=== PATIENT | male | born 1980 | race Caucasian/White ===

== ENCOUNTER 2018-08-17 13:59 | Emergency (ER) | payer SELFPAY ==
[2018-08-17 14:48] LABS: ABS Basophils 0 10^3/ul (0-0.2); ABS Eosinophils 0.1 10^3/ul (0-0.6); ABS Lymphocytes 0.3 10^3/ul (1.0-4.8); ABS Monocytes 0.7 10^3/ul (0-0.8); ABS Neutrophils 4.8 10^3/ul (1.5-7.7); ABS Nucleated RBC 0 10^3/ul; Eosinophil % 0.9 %; Hematocrit 44 % (42-52); Hemoglobin 14.6 g/dl (14.0-18.0); Lymphocyte % 4.8 %; Mean Corpuscular HGB Conc 33 g/dl (31-36); Mean Corpuscular Hemoglobin 31 pg (27-31); Mean Corpuscular Volume 94 fL (80-94); Mean Platelet Volume 7.5 fL (7.4-10.4); Nucleated Red Blood Cells % 0; Platelet Count 275 10^3/ul (150-450); Red Blood Count 4.66 10^6/ul (4.00-5.40); Red Cell Distribution Width 16 % (10.5-15); White Blood Count 5.9 10^3/ul (3.5-10.8)
[2018-08-17] MEDS ORDERED: NS 0.9% 1000 ML* 1,000 ML IV ONE (14:51)
[2018-08-17 15:05] LABS: ALT 65 U/L (7-52); AST 38 U/L (13-39); Albumin 4.8 g/dL (3.2-5.2); Albumin/Globulin Ratio 1.6 (1-3); Alkaline Phosphatase 69 U/L (34-104); Anion Gap 7 mmol/L (2-11); BUN/Creatinine Ratio 13.2 (8-20); Blood Urea Nitrogen 12 mg/dL (6-24); CO2 Carbon Dioxide 26 mmol/L (22-32); CRP High Sensitivity 2.85 mg/L (<2.00); Chloride 103 mmol/L (101-111); EGFR Non-African American 93.7 (>60); Glucose 152 mg/dL (70-100); Potassium 3.9 mmol/L (3.5-5.0); Sodium 136 mmol/L (135-145); Total Protein 7.8 g/dL (6.4-8.9)
[2018-08-17 15:46] LABS: Alcohol < 10 mg/dL (<10)
[2018-08-17] MEDS ORDERED: LORazepam INJ* 2 MG/ML 1 ML VIAL IV PUSH ONE (15:57)
[2018-08-17] MEDS ORDERED: Thiamine IV 100 MG, Folic Acid IV* 1 MG, Multiple Vitamin IV ADULT* 10 ML in D5NS 0.9% ... IV ONE (15:58)
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
[2018-08-17] MEDS ORDERED: chlordiazePOXIDE CAP* 25 MG PO ONE (16:47)
[2018-08-17] MEDS ORDERED: chlordiazePOXIDE CAP* 25 MG PO PRN ×2 (16:48)
[2018-08-17] MEDS ORDERED: Atenolol TAB* 25 MG PO SCH (17:00)
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
[2018-08-17] MEDS ORDERED: D5W 1/2 NS 1000 ML BAG* 1,000 ML IV SCH (18:00)
[2018-08-17] MEDS ORDERED: Thiamine TAB* 100 MG TAB PO SCH (18:00)
--- NOTE | 2018-08-17 18:25 | PN ---
Hospitalist Progress Note Date of Service: 08/17/18 Patient stated his intention of leaving AMA. The risks of leaving including recurrent seizure and were explained and patient and he stated that he understood the risks but was going to leave regardless. Librium taper was sent to pharmacy and patient will leave AMA.
[2018-08-17 18:40] VITALS: BP 126/83
[2018-08-17] MEDS ORDERED: Atorvastatin* 20 MG TAB PO SCH (21:00)
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
[2018-08-18] MEDS ORDERED: Omeprazole CAP (NF) 20 MG CAP.DR PO SCH (06:00)
== END 2018-08-17 18:42 | disposition left against medical advice (07) ==
LOC: ED 13:59
DX: R56.9 Unspecified convulsions (principal); F10.20 Alcohol dependence, uncomplicated; K85.90 Acute pancreatitis without necrosis or infection, unspecified; F17.200 Nicotine dependence, unspecified, uncomplicated; Z53.21 Procedure and treatment not carried out due to patient leaving prior to being seen by health care provider
CPT/HCPCS: 36415; 70450; 71045; 72125; 80053; 80320; 83605; 85025; 86141; 95816; 96361; 96374; 96375; 99285; A9270-GY; G0480; J2060; J3411